=== PATIENT | female | born 1955 | race Caucasian/White ===

== ENCOUNTER 2023-12-17 05:07 | Emergency (ER) | payer MEDICARE ==
[~2023-12-17] VITALS: Ht 162.6 cm; Wt 68.0 kg
[2023-12-17 05:13] VITALS: O2SAT 99
[2023-12-17 06:02] LABS: BASOPHILS % 0.9 % (0.0-2.0); CARBON DIOXIDE 29 mEq/L (21-32); CHLORIDE 104 mEq/L (98-107); EOSINOPHILS % 1.4 % (0.0-5.0); HEMOGLOBIN. 13.4 g/dL (12.0-16.0); LYMPHOCYTES % 36.6 % (20.0-50.0); MEAN CORPUSCULAR HEMOGLOBIN 31.9 pg (28.0-32.0); MEAN CORPUSCULAR HGB CONC 34.3 g/dL (31.0-37.0); MEAN CORPUSCULAR VOLUME 93.1 fL (81.0-99.0); MEAN PLATELET VOLUME 7.1 fl (7.4-10.4); MONOCYTES % 8.3 % (2.0-8.0); NEUTROPHILS % 52.8 % (40.0-76.0); PLATELET 247 x1000/uL (130-400); POTASSIUM 4.4 mEq/L (3.5-5.1); RED BLOOD CELL COUNT 4.19 mill/uL (4.2-5.4); RED CELL DISTRIBUTION WIDTH 12.9 % (11.6-14.6); SODIUM 141 mEq/L (136-145); WHITE BLOOD COUNT 5.5 x1000/uL (4.5-11.0)
[2023-12-17 06:03] LABS: CALCIUM 8.3 mg/dL (8.7-10.4)
[2023-12-17 06:07] LABS: CREATININE 0.6 mg/dL (0.6-1.0); GLUCOSE 117 mg/dL (70-105)
[2023-12-17 06:08] LABS: TROPONIN I HIGH SENSITIVITY 4 ng/L (3.0-34); UREA NITROGEN BLOOD 9 mg/dL (9-23)
[2023-12-17 06:09] LABS: ALANINE AMINOTRANSFERASE 76 IU/L (10-49); ALBUMIN 4.3 g/dL (3.2-4.8); ASPARTATE AMINOTRANSFERASE 55 IU/L (<34)
[2023-12-17 06:10] LABS: BILIRUBIN TOTAL 0.4 mg/dL (0.1-1.0)
[2023-12-17 06:22] LABS: BILIRUBIN DIRECT < 0.1 mg/dL (<=3.0)
[2023-12-17 08:24] VITALS: BP 127/49; PULSE 87; RESP 12; TEMP 36.72516; O2SAT 97
== END 2023-12-17 08:29 | disposition home or self-care (01) ==
LOC: ER 05:07
DX: R07.9 Chest pain, unspecified (principal); R06.02 Shortness of breath; F32.A Depression, unspecified; Z88.8 Allergy status to other drugs, medicaments and biological substances; Z20.822 Contact with and (suspected) exposure to COVID-19
CPT/HCPCS: 36415; 71045; 80048; 80076; 83880; 84484; 85025; 87426; 93005; 99285